=== PATIENT | male | born 1950 | race American Indian/Alaskan Native ===

== ENCOUNTER 2020-09-12 06:02 | Inpatient (IN) | payer MEDICARE ==
[2020-09-10 13:44] LABS: Hematocrit 42.4 % (35.5-45.6); Hemoglobin 14.5 gm/dl (11.8-15.2); Mean Corpuscular HGB Conc 34 % (32-34); Mean Corpuscular Volume 99 fl (84-94); Platelet Count 252 K/mm3 (140-440); Red Cell Distribution Width 14.6 % (13.2-15.2)
[2020-09-10 13:51] LABS: Alanine Aminotransferase 20 units/L (7-56); Albumin 3.9 g/dL (3.9-5); BUN/Creatinine Ratio 17; Blood Urea Nitrogen 19 mg/dL (9-20); Calcium 9.8 mg/dL (8.4-10.2); Hemolysis Index 9
--- NOTE | 2020-09-10 15:23 | Anesthesia Consultation ---
Anesthesia Consult and Med Hx Date of service: 09/10/20 - Airway Anesthetic Teeth Evaluation: Poor (multiple missing teeth, none loose) ROM Head & Neck: Adequate Mental/Hyoid Distance: Adequate Mallampati Class: Class II Intubation Access Assessment: Probably Good - Pulmonary Exam CTA: Yes - Cardiac Exam Cardiac Exam: RRR - Pre-Operative Health Status ASA Pre-Surgery Classification: ASA3 Proposed Anesthetic Plan: General - Pulmonary Hx Smoking: Yes (quit 18yrs ago) Hx Asthma: Yes (rare albuterol use) Hx Respiratory Symptoms: Yes (occasional cough) SOB: Yes (chronic, stable VAZQUEZ) Home Oxygen Therapy: No Hx Sleep Apnea: No (NISA PRE SCREEN HIGH RISK) - Cardiovascular System Hx Hypertension: Yes Hx Heart Attack/AMI: No Hx Percutaneous Transluminal Coronary Angioplasty (PTCA): No Hx Cardia Arrhythmia: No - Central Nervous System CVA: No Hx Back Pain: Yes (with pain/weakness to BLE (L>R)) - Endocrine Hx Renal Disease: Yes (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 S/p left upper lobectomy for lung ca in 2020. Reports cough and mild VAZQUEZ associated with the surgery. Follows with PCP and oncologist (most recent oncology eval on chart). Last dose ASA 09/08/20, surgeon's office notified.
[~2020-09-12 06:02] MED LIST: ACETAMINOPHEN 500 MG TAB PO SCH
[2020-09-12] MEDS ORDERED: BACTERIOSTATIC SODIUM CHLORIDE 0.9% 30 ML VIAL INFILTRATI ONE (06:11)
[2020-09-12] MEDS: LACTATED RINGERS 1,000 ML IV SCH ×2 (06:50→15:43)
--- NOTE | 2020-09-12 06:51 | Anesthesia Day of Surgery ---
Anesthesia Day of Surgery - Day of Surgery Patient Examined: Yes Patient H&P Reviewed: Yes Patient is NPO: Yes
[2020-09-12] MEDS ORDERED: SODIUM CHLORIDE 0.9% 250ML 0 ML ONE (06:52)
[2020-09-12] MEDS ORDERED: GELATIN SPONGE SIZE 100 TP ONE (06:52)
[2020-09-12] MEDS ORDERED: THROMBIN (RECOMBINANT) 5,000 UNIT VIAL TP ONE ×2 (06:52→08:27)
[2020-09-12] MEDS ORDERED: BUPIVACAINE/PF (0.5%) 5 MG/1 ML 30 ML VIAL INFILTRATI ONE ×2 (06:52→09:17)
[2020-09-12] MEDS ORDERED: LIDOCAINE 1%/EPINEPHRINE 1:100,000 VIAL (20 ML) INFILTRATI ONE (06:52)
[2020-09-12] MEDS ORDERED: MAGNESIUM SULFATE 4 GM/100 ML BAG IV ONE (06:58)
[2020-09-12] MEDS ORDERED: BACITRACIN 50,000 UNIT VIAL ONE (07:16)
[2020-09-12] MEDS ORDERED: KETAMINE/STERILE WATER 50 MG/ML SYRINGE ONE (07:18)
[2020-09-12] MEDS ORDERED: SODIUM CHLORIDE P/F VIAL 10 ML 10 ML ONE (07:18)
[2020-09-12] MEDS ORDERED: ONDANSETRON 4 MG/2 ML INJ IV PRN (07:30)
[2020-09-12] MEDS ORDERED: HYDROmorphone 1 MG/1 ML INJ IV PRN (07:30)
[2020-09-12] MEDS ORDERED: ceFAZolin/STERILE WATER 2 GM/20 ML SYRINGE IV NR (08:00)
[2020-09-12] MEDS ORDERED: ePHEDrine SULFATE 50 MG/1 ML INJ ONE (08:09)
[2020-09-12] MEDS ORDERED: GELATIN SPONGE 12 X 7 TP ONE (08:27)
[2020-09-12] MEDS ORDERED: BACITRACIN 50,000 UNIT VIAL IR ONE (08:27)
[2020-09-12] MEDS ORDERED: SODIUM CHLORIDE P/F VIAL 10 ML 20 ML ONE (08:29)
[2020-09-12] MEDS ORDERED: LIDOCAINE MPF (2%) 20 MG/1 ML VIAL 5 ML ONE (08:29)
[2020-09-12] MEDS ORDERED: ROCURONIUM 50 MG/5 ML INJ IV ONE (08:29)
[2020-09-12] MEDS ORDERED: SUCCINYLCHOLINE CHLORIDE 200 MG/10 ML INJ MDV ONE (08:29)
[2020-09-12] MEDS ORDERED: dexAMETHasone 20 MG/5 ML VIAL ONE (08:29)
[2020-09-12] MEDS ORDERED: ONDANSETRON 4 MG/2 ML INJ ONE ×2 (08:29→08:34)
[2020-09-12] MEDS ORDERED: GLYCOPYRROLATE 0.4 MG/2 ML INJ ONE (08:29)
[2020-09-12] MEDS ORDERED: KETOROLAC 30 MG/1 ML INJ ONE (08:34)
[2020-09-12] MEDS ORDERED: VANCOMYCIN 1,000 MG/20 ML IV ONE (11:00)
[2020-09-12] MEDS ORDERED: VANCOMYCIN 1000 MG INJ ONE (11:00)
[2020-09-12] MEDS ORDERED: BACITRACIN ZINC OINT 28.4 GM TP ONE ×2 (11:11→11:15)
[2020-09-12] MEDS ORDERED: NALOXONE 0.4 MG/1 ML INJ IV PRN (11:45)
[2020-09-12] MEDS ORDERED: SODIUM CHLORIDE 0.9% 1000 ML 1,000 ML IV SCH (11:45)
[2020-09-12] MEDS ORDERED: oxyCODONE /ACETAMINOPHEN 5-325MG TAB PO PRN (11:45)
--- NOTE | 2020-09-12 14:23 | Post Anesthesia Evaluation ---
- Post Anesthesia Evaluation Patient Participated: Yes Airway Patent: Yes Stable Respiratory Function: Yes Nausea/Vomiting: No Temp > 96.8F: Yes Pain Manageable: Yes Adequeate Hydration: Yes Anesthesia Complications: No
[2020-09-12] MEDS: oxyCODONE /ACETAMINOPHEN 5-325MG TAB PO PRN (20:29)
[2020-09-12] MEDS ORDERED: SENNOSIDES 8.6 MG TAB PO SCH (22:00)
[2020-09-12] MEDS ORDERED: DOCUSATE SODIUM 100 MG CAP PO SCH (22:00)
[2020-09-13 08:15] VITALS: BP 132/67
[2020-09-13] MEDS: oxyCODONE /ACETAMINOPHEN 5-325MG TAB PO PRN (08:24)
--- NOTE | 2020-09-15 10:52 | Operative Report ---
DATE OF SURGERY: 09/12/2020 PREOPERATIVE DIAGNOSIS: Severe back pain with neurogenic claudication. POSTOPERATIVE DIAGNOSIS: Severe back pain with neurogenic claudication. PROCEDURE PERFORMED: 1. Placement of nonsegmental pedicle fixation at L3-L4. 2. L3-4 laminectomy, left facetectomy and foraminotomy. 3. Placement of intervertebral biomechanical device at L3-L4 for purposes of interbody fusion. 4. Posterolateral arthrodesis with allograft. 5. Use of intraoperative nerve monitoring. SURGEON: Alexis Brooke II, MD DIAGRAM CLERK: None. FINDINGS: Large disk herniation at L3-L4 causing severe central and lateral recess stenosis. COMPLICATIONS: None apparent. DISPOSITION: Stable, extubated to PACU. BRIEF HISTORY: The patient is a 70-year-old male with a history of prostate cancer and chronic low back pain, who presented to the clinic with symptoms of refractory back and bilateral lower extremity pain despite physical therapy and pain management. His imaging studies were reviewed, which revealed a very large central disk herniation at L3-L4, which cause severe stenosis of the central canal and lateral recess. I recommended L3-L4 interbody fusion. All pertinent risks and benefits of the operation were reviewed and he agreed to proceed. DETAILS OF OPERATION: He was taken to the operating theater by anesthesia. He was intubated without difficulty. He was positioned prone on an open spine table. Please note that all pressure points were padded to prevent peripheral nerve injury. Eyes were lubricated and taped shut to prevent corneal abrasion. The lumbar spine was prepped and draped in the usual sterile fashion. The location of the skin incision was determined with the use of lateral fluoroscopy. The skin was incised with a #10 scalpel blade. Further dissection was performed with the electrosurgical generator of Tico Ceja. The lamina of L3 and L4 were exposed in a subperiosteal fashion. The pedicle entry points at L3 and L4 were identified, and exposed. Next, bilateral pedicle screws were placed at L3 and L4 in the usual fashion. Each screw measured 6.5 x 45 mm in size. There was good fixation achieved at each level. Next, using a high speed 3 mm matchstick drill, the L3 lamina and left inferior facet were removed. Next, the ligamentum flavum was removed with 3-0 and 4-0 Kerrison rongeurs to decompress the thecal sac and lateral recesses. The left residual overriding facet was also further removed with the high-speed matchstick drill. The exiting left L3 nerve root was completely decompressed. The disk space was identified and all epidural veins were coagulated with the bipolar forceps of Alvarez Perales. The disk was incised with a #15 scalpel blade under lateral fluoroscopy. Sequential anika were inserted into the disk space to facilitate disk removal and prepare for interbody arthrodesis. Disk material was removed with pituitary rongeurs. The cartilaginous attachments of the endplates were removed with downgoing curettes and a rasp. Next, a Globus RISE 8 mm expandable cage was inserted into the L3-L4 disk space on the lateral fluoroscopy and expanded until appropriate resistance was encountered. The exposure was copiously irrigated with bacitracin infused saline. The bone harvested from the lamina and facet joint lamina was mixed with the demineralized bone matrix. The exposed cortical surfaces were drilled to prepare for posterolateral arthrodesis. The autograft and allograft mixture was then applied to the exposed cancellous surfaces to achieve posterolateral arthrodesis. Next, a drain was tunneled through the skin and secured in place overlying the decompression. Next, attention was turned to closure. Vancomycin powder was sprinkled throughout the exposure. The muscle and fascia were closed with 0 polyglactin synthetic absorbable suture. The dermis was closed with 2-0 polyglactin synthetic absorbable suture in an inverted fashion. The skin was reapproximated with constance. Please note that all needle counts, sponge counts and instrument counts were correct at the end of the case x2. The patient appeared to tolerate the operation well. He was transferred back to Anesthesia in preparation for extubation. There were no neuromonitoring changes throughout the operation. The patient was extubated without difficulty and transferred to the PACU. TID: [id number] RECEIPT: [id number] BERNICE/OMER/BITA ECHAVARRIA
--- NOTE | 2020-09-16 07:50 | XRay Report ---
LUMBOSACRAL SPINE 2 VIEWS INDICATION: HERNIATED DISC L3-4. COMPARISON: None. IMPRESSION: 1.7 minutes of fluoroscopy time was provided by radiology during posterior fusion at L3- 4. 2 fluoroscopic images of the lumbar spine are presented demonstrating adequate placement of the h ardware with good alignment. There is moderate to severe multilevel spondylosis. No acute process is appreciated. Signer Name: Rich Kirby Jr, MD Signed: 09/16/2020 7:46 AM Workstation Name: [id number]
== END 2020-09-13 10:57 | disposition home or self-care (01) | DRG 455 ==
LOC: 3A 06:02 → EDSTATUS 07:30 → 3B 12:09
PROVIDERS: ADMIT Psychiatry & Neurology Neurology; ATTEND Psychiatry & Neurology Neurology
PROC: 0SG00AJ Fusion of Lumbar Vertebral Joint with Interbody Fusion Device, Posterior Approach, Anterior Column, Open Approach (ICD-10-PCS; principal; 2020-09-12)
PROC: 0SG0071 Fusion of Lumbar Vertebral Joint with Autologous Tissue Substitute, Posterior Approach, Posterior Column, Open Approach (ICD-10-PCS; 2020-09-12)
PROC: 0SB20ZZ Excision of Lumbar Vertebral Disc, Open Approach (ICD-10-PCS; 2020-09-12)
PROC: 00NY0ZZ Release Lumbar Spinal Cord, Open Approach (ICD-10-PCS; 2020-09-12)
PROC: 01NB0ZZ Release Lumbar Nerve, Open Approach (ICD-10-PCS; 2020-09-12)
PROC: 4A11X4G Monitoring of Peripheral Nervous Electrical Activity, Intraoperative, External Approach (ICD-10-PCS; 2020-09-12)
DX: M48.062 Spinal stenosis, lumbar region with neurogenic claudication (principal); J45.909 Unspecified asthma, uncomplicated; M10.9 Gout, unspecified; E11.9 Type 2 diabetes mellitus without complications; C61 Malignant neoplasm of prostate; M51.16 Intervertebral disc disorders with radiculopathy, lumbar region; I10 Essential (primary) hypertension; Z20.822 Contact with and (suspected) exposure to COVID-19; Z79.84 Long term (current) use of oral hypoglycemic drugs; Z79.899 Other long term (current) drug therapy; Z79.51 Long term (current) use of inhaled steroids; Z90.81 Acquired absence of spleen; Z92.3 Personal history of irradiation; Z85.46 Personal history of malignant neoplasm of prostate; Z87.891 Personal history of nicotine dependence; Z92.21 Personal history of antineoplastic chemotherapy; Z85.118 Personal history of other malignant neoplasm of bronchus and lung
CPT/HCPCS: 36415; 72100; 80053; 82962; 85027; 86850; 86900; 86901; G0378; A4649; J0330; J1100; J1885; J2405; J2704; J3370; J3475; J3490; J7030; J7050; J7120; L8699; U0003